=== PATIENT | female | born 1930 | race Caucasian/White ===

== ENCOUNTER → 2019-07-02 | Outpatient (CLI) | payer OTHER ==
[~2019-07-02] MED LIST: BENAZEPRIL HCL20 MG; NORVASC5 MG PO; ZANTAC 150MG T150 MG PO
== END ==
LOC: SJCVCIMAG 08:24
DX: R07.9 Chest pain, unspecified (principal); R94.31 Abnormal electrocardiogram [ECG] [EKG]; I10 Essential (primary) hypertension; E78.5 Hyperlipidemia, unspecified; Z79.82 Long term (current) use of aspirin; Z79.899 Other long term (current) drug therapy